=== PATIENT | male | born 1945 | race Caucasian/White ===

== ENCOUNTER → 2017-09-16 | Outpatient (CLI) | payer OTHER | END | disposition home or self-care (01) | LOC: RAH 11:15 | PROVIDERS: ATTEND Family Medicine | DX: J44.9 Chronic obstructive pulmonary disease, unspecified (principal); M47.895 Other spondylosis, thoracolumbar region; J84.10 Pulmonary fibrosis, unspecified; K21.9 Gastro-esophageal reflux disease without esophagitis; E89.0 Postprocedural hypothyroidism; I48.0 Paroxysmal atrial fibrillation | CPT/HCPCS: 71046 ==

== ENCOUNTER 2021-03-16 07:57 | Inpatient (IN) | payer MEDICARE, OTHER ==
[~2021-03-16] VITALS: Ht 177.8 cm; Wt 51.3 kg
[2021-03-16 08:25] LABS: BASOPHILS % (AUTO) 0.6 % (0.0-5.0); EOSINOPHILS % (AUTO) 4.3 % (0.0-8.0); HEMATOCRIT 30.9 % (42-54); LYMPHOCYTES % (AUTO) 10.3 % (21.0-51.0); MEAN CORPUSCULAR HEMOGLOBIN 28.8 pg (27.0-33.0); MEAN CORPUSCULAR HGB CONC 31.7 g/dL (32.0-36.0); MEAN CORPUSCULAR VOLUME 90.9 fL (79-99); MONOCYTES % (AUTO) 7.3 % (3.0-13.0); PLATELET COUNT (AUTO) 205 K/uL (130-400); RED CELL DISTRIBUTION WIDTH 14.1 % (11.0-15.5)
[2021-03-16] MEDS ORDERED: IPRATROPIUM/ALBUTEROL SULFATE 3 ML SOLUTION IH SCH (08:30)
[2021-03-16 08:35] LABS: CREATININE 0.8 mg/dL (0.5-1.5); POTASSIUM 4.1 mmol/L (3.5-5.1)
[2021-03-16 08:38] LABS: INR 1.01 (0.85-1.15)
[2021-03-16 08:39] LABS: PARTIAL THROMBOPLASTIN TIME 32.5 SEC (26.3-35.5)
[2021-03-16 08:45] LABS: ALBUMIN 2.9 g/dL (3.5-5.0); BILIRUBIN,TOTAL 0.3 mg/dL (0.2-1.0); TOTAL PROTEIN, SERUM 6.8 g/dL (6.0-8.3)
[2021-03-16 08:50] LABS: B-TYPE NATRIURETIC PEPTIDE 38 pg/mL (0-100)
[2021-03-16] MEDS ORDERED: SOLU-MEDROL 40MG VIAL IVP SCH ×2 (10:00→21:00)
[2021-03-16] MEDS ORDERED: HYDRALAZINE 20MG/ML VIAL IV PRN (10:00)
[2021-03-16] MEDS ORDERED: ACETAMINOPHEN 325 MG TAB PO PRN ×2 (10:00)
[2021-03-16] MEDS ORDERED: CEFTRIAXONE 1G VIAL IVP SCH (10:00)
[2021-03-16] MEDS ORDERED: ONDANSETRON 4MG INJ IV PRN (10:00)
[2021-03-16] MEDS ORDERED: CALC-877 PO (10:07)
[2021-03-16] MEDS ORDERED: PARO40TA72 PO (10:07)
[2021-03-16] MEDS ORDERED: DILT240C97 PO (10:07)
[2021-03-16] MEDS ORDERED: TAMS-1 PO (10:07)
[2021-03-16] MEDS ORDERED: AEC81 PO (10:07)
[2021-03-16] MEDS ORDERED: OMEP20TA25 PO (10:07)
[2021-03-16] MEDS ORDERED: FAMO20TA8 PO (10:07)
[2021-03-16] MEDS ORDERED: LEVO125T95 PO (10:07)
[2021-03-16] MEDS ORDERED: FERR-72 PO (10:07)
[2021-03-16] MEDS ORDERED: SERT150C PO (10:07)
[2021-03-16] MEDS ORDERED: GUAI400T94 PO (10:07)
[2021-03-16] MEDS ORDERED: PRAV20TA4 PO (10:07)
[2021-03-16] MEDS ORDERED: FLUT1BLS11 IH (10:07)
[2021-03-16] MEDS ORDERED: FINA5TAB41 PO (10:07)
[2021-03-16] MEDS: IPRATROPIUM/ALBUTEROL SULFATE 3 ML SOLUTION IH SCH ×3 (12:00→23:03)
[2021-03-16 13:11] LABS: APPEARANCE,URINE Clear (CLEAR); BILIRUBIN,URINE Negative (NEGATIVE); COLOR,URINE Yellow (YELLOW); GLUCOSE, URINE (UA) Negative (NEGATIVE); KETONES,URINE 40 mg/dL (NEGATIVE); LEUKOCYTE ESTERASE ,URINE Negative (NEGATIVE); NITRATE,URINE Negative (NEGATIVE); OCCULT BLOOD,URINE Negative (NEGATIVE); PH,URINE 7.5 (5.0-8.0); PROTEIN,URINE Negative (NEGATIVE)
[2021-03-16 13:18] LABS: ABG BASE EXCESS 0.5 mmol/L (-2.0-3.0); ABG OXYGEN SATURATION 98.5 % (95.0-99.0); ABG PCO2 57 mmHg (35-48)
[2021-03-16] MEDS ORDERED: HYDR-4060 PO (13:26)
[2021-03-16 13:28] LABS: BACTERIA,URINE None Seen /HPF (None Seen); RBC,URINE 0-1 /HPF (0-1); SQUAMOUS EPITHELIAL CELL,UR 0-2 /HPF (0-2); WBC,URINE 0-1 /HPF (0-1)
[2021-03-16] MEDS ORDERED: HYDROCODONE/ACETAMINOPHEN 10/325 MG TAB ONE (13:28)
[2021-03-16] MEDS: HYDROCODONE/ACETAMINOPHEN 10/325 MG TAB PO PRN ×2 (13:30→23:21)
[2021-03-16] MEDS ORDERED: FUROSEMIDE 20MG VIAL IV ONE (17:30)
[2021-03-16] MEDS ORDERED: FUROSEMIDE 20MG VIAL ONE (18:46)
[2021-03-16] MEDS ORDERED: SODIUM CHLORIDE 3% FOR INHALATION 4 ML/AMP VIAL.NEB IH ONE (18:49)
[2021-03-16] MEDS: 0.9% NACL 250ML IVPB SCH (18:51)
[2021-03-16] MEDS: AZITHROMYCIN 500MG+NS 250ML IV SCH (18:51)
[2021-03-16] MEDS: SOLU-MEDROL 40MG VIAL IVP SCH (20:58)
[2021-03-16] MEDS: FAMOTIDINE 20MG VIAL IV SCH (20:58)
[2021-03-16] MEDS: BUDESONIDE 0.5 MG/2 ML INH IH SCH (22:24)
[2021-03-17] MEDS: SOLU-MEDROL 40MG VIAL IVP SCH ×3 (05:37→18:06)
[2021-03-17] MEDS: HYDROCODONE/ACETAMINOPHEN 10/325 MG TAB PO PRN ×2 (05:38→15:26)
[2021-03-17] MEDS ORDERED: SODIUM CHLORIDE 3% FOR INHALATION 4 ML/AMP VIAL.NEB IH ONE (06:27)
[2021-03-17] MEDS ORDERED: SOLU-MEDROL 40MG VIAL IVP SCH (09:00)
[2021-03-17] MEDS: ENOXAPARIN SODIUM 40 MG/0.4 ML SYRINGE SQ SCH (09:00)
[2021-03-17] MEDS: CEFTRIAXONE 1G VIAL IVP SCH (09:00)
[2021-03-17] MEDS: FAMOTIDINE 20MG VIAL IV SCH ×2 (09:00→20:36)
[2021-03-17 10:40] LABS: HEMATOCRIT 31.5 % (42-54); LYMPHOCYTES % (AUTO) 13.3 % (21.0-51.0); MEAN CORPUSCULAR HEMOGLOBIN 29.1 pg (27.0-33.0); MEAN CORPUSCULAR HGB CONC 32.4 g/dL (32.0-36.0); NEUTROPHILS % (AUTO) 85.4 % (40.0-77.0); PLATELET COUNT (AUTO) 226 K/uL (130-400); RED CELL DISTRIBUTION WIDTH 14.1 % (11.0-15.5); WHITE BLOOD COUNT (AUTO) 3.9 K/uL (4.8-10.8)
[2021-03-17 10:45] LABS: CREATININE 0.9 mg/dL (0.5-1.5); POTASSIUM 5.1 mmol/L (3.5-5.1)
[2021-03-17] MEDS: LEVETIRACETAM 500 MG TABLET PO SCH ×2 (10:53→20:36)
[2021-03-17] MEDS: IPRATROPIUM/ALBUTEROL SULFATE 3 ML SOLUTION IH SCH ×4 (11:35→23:43)
[2021-03-17] MEDS: BUDESONIDE 0.5 MG/2 ML INH IH SCH ×2 (11:36→19:35)
[2021-03-17] MEDS ORDERED: HYDROCODONE/ACETAMINOPHEN 5/325 MG TAB PO PRN (12:00)
[2021-03-17] MEDS: DILTIAZEM 120MG SR CAP PO SCH (12:10)
[2021-03-17] MEDS: FERROUS SULFATE 325 MG TABLET.DR PO SCH (12:10)
[2021-03-17] MEDS: PAROXETINE HCL 20 MG TABLET PO SCH (12:15)
[2021-03-17] MEDS ORDERED: PANTOPRAZOLE 40 MG TAB DR ONE (13:04)
[2021-03-17] MEDS: GUAIFENESIN SUGAR-FREE 100 MG/5 ML UDCUP PO SCH ×2 (13:31→20:36)
[2021-03-17] MEDS ORDERED: PRAM0.5T12 PO (14:13)
[2021-03-17] MEDS ORDERED: FURO40TA5 PO (14:15)
[2021-03-17] MEDS: PANTOPRAZOLE 40 MG TAB DR PO SCH (16:25)
[2021-03-17] MEDS ORDERED: SERTRALINE HCL 50 MG TABLET PO SCH (17:00)
[2021-03-17] MEDS: CA 600MG+VIT D 400 UNIT TAB 1 TAB TABLET PO SCH (17:00)
[2021-03-17] MEDS: AZITHROMYCIN 500MG+NS 250ML IV SCH (18:06)
[2021-03-17] MEDS: 0.9% NACL 250ML IVPB SCH (18:07)
[2021-03-17] MEDS: SALMETEROL IH SCH (20:36)
[2021-03-17] MEDS: FLUTICASONE PROPION IH SCH (20:36)
[2021-03-17] MEDS ORDERED: PRAMIPEXOLE DI-HCL 0.25 MG TABLET PO SCH (21:00)
[2021-03-17] MEDS ORDERED: FINASTERIDE 5 MG TABLET PO SCH (21:00)
[2021-03-17] MEDS ORDERED: SIMVASTATIN 20 MG TABLET PO SCH (21:00)
[2021-03-17] MEDS ORDERED: FAMOTIDINE 20MG TAB PO SCH (21:00)
[2021-03-17] MEDS ORDERED: TAMSULOSIN HCL 0.4 MG CAP.ER.24H PO SCH (21:00)
[2021-03-18] MEDS: SOLU-MEDROL 40MG VIAL IVP SCH ×2 (03:18→09:44)
[2021-03-18] MEDS: BUDESONIDE 0.5 MG/2 ML INH IH SCH (06:35)
[2021-03-18] MEDS: IPRATROPIUM/ALBUTEROL SULFATE 3 ML SOLUTION IH SCH ×2 (06:35→11:15)
[2021-03-18] MEDS ORDERED: LEVOTHYROXINE 125 MCG TABLET PO SCH (07:30)
[2021-03-18] MEDS ORDERED: FUROSEMIDE 40 MG TABLET PO SCH (09:00)
[2021-03-18] MEDS: SALMETEROL IH SCH (09:00)
[2021-03-18] MEDS ORDERED: ASPIRIN 81 MG EC TAB PO SCH (09:00)
[2021-03-18] MEDS: FLUTICASONE PROPION IH SCH (09:00)
[2021-03-18] MEDS: PANTOPRAZOLE 40 MG TAB DR PO SCH (09:27)
[2021-03-18] MEDS: FERROUS SULFATE 325 MG TABLET.DR PO SCH (09:28)
[2021-03-18] MEDS: LEVETIRACETAM 500 MG TABLET PO SCH (09:28)
[2021-03-18] MEDS: DILTIAZEM 120MG SR CAP PO SCH (09:29)
[2021-03-18] MEDS: CA 600MG+VIT D 400 UNIT TAB 1 TAB TABLET PO SCH (09:30)
[2021-03-18] MEDS: PAROXETINE HCL 20 MG TABLET PO SCH (09:30)
[2021-03-18] MEDS: GUAIFENESIN SUGAR-FREE 100 MG/5 ML UDCUP PO SCH (09:33)
[2021-03-18] MEDS: ENOXAPARIN SODIUM 40 MG/0.4 ML SYRINGE SQ SCH (09:44)
[2021-03-18] MEDS: FAMOTIDINE 20MG VIAL IV SCH (09:44)
[2021-03-18] MEDS: CEFTRIAXONE 1G VIAL IVP SCH (09:44)
[2021-03-18] MEDS ORDERED: PRED20TA3 PO (11:55)
[2021-03-18] MEDS ORDERED: DOXY100C5 PO (11:55)
[2021-03-18 13:27] VITALS: BP 113/54
== END 2021-03-18 16:27 | disposition hospice, home (50) | DRG 189 ==
LOC: EDH 07:57 → OBSVTOIN 09:39 → EDHIP 09:39
PROVIDERS: ADMIT Internal Medicine; ATTEND Internal Medicine
DX: J96.21 Acute and chronic respiratory failure with hypoxia (principal); J81.1 Chronic pulmonary edema; J44.1 Chronic obstructive pulmonary disease with (acute) exacerbation; J96.22 Acute and chronic respiratory failure with hypercapnia; I48.91 Unspecified atrial fibrillation; E03.9 Hypothyroidism, unspecified; I11.9 Hypertensive heart disease without heart failure; K21.9 Gastro-esophageal reflux disease without esophagitis; Z20.822 Contact with and (suspected) exposure to COVID-19; J43.9 Emphysema, unspecified; J98.4 Other disorders of lung; R56.9 Unspecified convulsions; Z88.0 Allergy status to penicillin; Z91.041 Radiographic dye allergy status; Z85.46 Personal history of malignant neoplasm of prostate
CPT/HCPCS: 36415; 36600; 70450; 71045; 71250; 80048; 80053; 81001; 82550; 82803; 83874; 83880; 84145; 84153; 84443; 84484; 85025; 85610; 85730; 86701; 87040; 87390; 87486; 87522; 87581; 87633; 87635; 87798; 93005; 93970; 94640; 94664; 97039; 99291; C9803; G0378; J0360; J0456; J0696; J1650; J1940; J2920; J3490